=== PATIENT | male | born 1970 | race Caucasian/White ===

== ENCOUNTER → 2017-03-27 | Outpatient (CLI) | payer OTHER ==
[2017-03-27 16:25] LABS: ABSOLUTE BASOPHILS 0.1 thou/uL (0.0-0.2); ABSOLUTE EOSINOPHILS 0.2 thou/uL (0.0-0.7); ABSOLUTE LYMPHOCYTES 1.7 thou/uL (0.8-5.3); ABSOLUTE MONOCYTES 0.9 thou/uL (0.0-1.2); ABSOLUTE NEUTROPHILS 10.1 thou/uL (1.6-8.1); BASOPHILS 0.6 %; EOSINOPHILS 1.2 %; HEMOGLOBIN 13.5 gm/dL (14.0-18.0); LYMPHOCYTES 13.2 %; MCH 28.6 pg (26.0-34.0); MCHC 32.8 g/dL (28.0-37.0); MCV 87.1 fL (80.0-100.0); MPV 7.9 fl. (7.2-11.1); NUCLEATED RBCS 0 /100WBC; PLATELET COUNT* 295 thou/uL (150-400); RDW-CV 13.6 % (10.5-14.5); WBC 12.9 thou/uL (4.0-11.0)
[2017-03-27 16:34] LABS: ALBUMIN 3.8 g/dL (3.4-5.0); CALCIUM 9.2 mg/dL (8.5-10.1); CREATININE 0.9 mg/dL (0.6-1.3); POTASSIUM 3.9 mmol/L (3.5-5.1); TOTAL BILIRUBIN 0.5 mg/dL (<0.1-1.0); TOTAL PROTEIN 7.6 g/dL (6.4-8.2)
== END ==
LOC: M.LAB 16:05
PROVIDERS: Internal Medicine Gastroenterology
DX: K22.9 Disease of esophagus, unspecified (principal)

== ENCOUNTER → 2017-03-31 | Outpatient (CLI) | payer OTHER | LOC: M.CT 09:30 | DX: K22.9 Disease of esophagus, unspecified (principal); K76.9 Liver disease, unspecified ==

== ENCOUNTER 2019-05-06 18:34 | Emergency (ER) | payer OTHER ==
[~2019-05-06] VITALS: Ht 185.4 cm; Wt 71.7 kg
[2019-05-06] MEDS ORDERED: PREDNISONE 20 M20 M1 PO (18:40)
[2019-05-06] MEDS ORDERED: MS CONTIN 60 MG60 MG PO (18:40)
[2019-05-06] MEDS ORDERED: PROTONIX40 M2 PO (18:40)
[2019-05-06] MEDS ORDERED: OXYCONTIN10 M1 PO (18:44)
[2019-05-06 19:14] LABS: HEMATOCRIT 35.2 % (42.0-52.0); HEMOGLOBIN 11.9 gm/dL (14.0-18.0); MCH 33.5 pg (26.0-34.0); MCHC 33.9 g/dL (28.0-37.0); MPV 7.5 fl. (7.2-11.1); NUCLEATED RBCS 0 /100WBC; PLATELET COUNT* 185 thou/uL (150-400); RBC 3.56 mil/uL (4.50-6.00); RDW-CV 16.4 % (10.5-14.5); WBC 15.9 thou/uL (4.0-11.0)
[2019-05-06 19:26] LABS: CALCIUM 8.8 mg/dL (8.5-10.1); POTASSIUM 3.7 mmol/L (3.5-5.1)
[2019-05-06 19:31] LABS: TOTAL BILIRUBIN 1.5 mg/dL (<0.1-1.0); TOTAL PROTEIN 6.3 g/dL (6.4-8.2)
[2019-05-06 19:51] LABS: ABSOLUTE LYMPHOCYTES 0.8 thou/uL (0.8-5.3); ABSOLUTE MONOCYTES 0.2 thou/uL (0.0-1.2); ABSOLUTE NEUTROPHILS 14.9 thou/uL (1.6-8.1)
[2019-05-06 19:52] LABS: PLATELET ESTIMATE ADEQUATE
[2019-05-07 01:23] VITALS: BP 115/75
--- NOTE | 2019-05-07 11:39 | EKG ---
[place] [address] ELECTROCARDIOGRAM REPORT Name: AMARA SHAIKH Room: [facility]#: [id number] Admission: 05/06/19 Attend Phys: Discharge: 05/07/19 Date of : 70 Date of Service: 05/06/191853 Report #: [id number] THIS REPORT FOR: //name// [facility] ED Test Date: 2019-05-06 Test Time: 18:54:05 Pat Name: AMARA SHAIKH Department: Room: Gender: [employer]: [facility] : 1970 Requested By: Kait Huang Order Number: [id number] MD: Cornell Soto Measurements Intervals [place] Rate: 79 P: 55 VA: 112 QRS: 12 QRSD: 143 T: 73 QT: 377 QTc: 433 Interpretive Statements Sinus rhythm Borderline short VA interval Nonspecific intraventricular conduction delay High st segment takeoff, probably normal variant No previous ECG available for comparison Electronically Signed On 05-07-2019 11:38:12 [employer] LEAD[employer] by Cornell Soto [email or web address] <ELECTRONICALLY SIGNED> By: Cornell Soto MD, [facility] 05/07/19 1138 1854 1854 Cornell Soto MD, [facility] /EPI
== END 2019-05-07 01:55 | disposition short-term general hospital (02) ==
LOC: M.ERS 18:34
PROVIDERS: Personal Emergency Response Attendant
DX: J93.9 Pneumothorax, unspecified (principal); Z85.01 Personal history of malignant neoplasm of esophagus; Z88.0 Allergy status to penicillin